=== PATIENT | male | born 1985 | race Caucasian/White ===

== ENCOUNTER 2019-10-27 10:43 | Emergency (ER) | payer BC ==
[~2019-10-27] VITALS: Ht 170.2 cm; Wt 74.8 kg
[2019-10-27] MEDS ORDERED: VOLTAREN-XR100 MG PO (11:13)
[2019-10-27] MEDS ORDERED: LIDODERM1 EACH TOP (12:33)
[2019-10-27] MEDS ORDERED: METHYLPREDNISOLO4 M1 PO (12:33)
[2019-10-27] MEDS ORDERED: NORCO 7.5-3251 EACH PO (12:33)
== END 2019-10-27 13:52 | disposition home or self-care (01) ==
LOC: ED 10:43
DX: M54.41 Lumbago with sciatica, right side (principal)
CPT/HCPCS: 96372; 99283-25; A9270; J1885

== ENCOUNTER 2021-01-19 20:57 | Emergency (ER) | payer BC ==
[~2021-01-19] VITALS: Ht 170.2 cm; Wt 74.8 kg
[~2021-01-19 20:57] MED LIST: LIDODERM1 EACH TOP; METHYLPREDNISOLO4 M1 PO; NORCO 7.5-3251 EACH PO; VOLTAREN-XR100 MG PO
[2021-01-19] MEDS ORDERED: CYCLOBENZAPRINE10 MG PO (21:05)
== END 2021-01-19 23:52 | disposition home or self-care (01) ==
LOC: ED 20:57
DX: T88.6XXA Anaphylactic reaction due to adverse effect of correct drug or medicament properly administered, initial encounter (principal); T39.395A Adverse effect of other nonsteroidal anti-inflammatory drugs [NSAID], initial encounter; M54.9 Dorsalgia, unspecified; G89.29 Other chronic pain; F17.200 Nicotine dependence, unspecified, uncomplicated
CPT/HCPCS: 96374; 96375; 99284-25; J0171; J1200; J2405; J2930